=== PATIENT | female | born 1955 | race Caucasian/White ===

== ENCOUNTER 2017-03-07 10:57 | Observation (INO) | payer OTHER ==
[~2017-03-07] VITALS: Ht 172.7 cm; Wt 117.9 kg
[2017-03-07 11:35] LABS: HEMOGLOBIN 15.8 gm/dl (12.3-15.3); RED BLOOD COUNT 5.2 M/UL (4.00-5.10); WHITE BLOOD COUNT 10.6 K/UL (4.5-11.0)
[2017-03-07 11:43] LABS: BUN/CREATININE RATIO 16 (0-10)
[2017-03-07] MEDS ORDERED: PLAVIX 75 MG TA75 MG PO (19:06)
[2017-03-07] MEDS ORDERED: LOPRESSOR100 MG PO (19:07)
[2017-03-07] MEDS ORDERED: QUINAPRIL HCL5 MG PO (19:07)
[2017-03-07] MEDS ORDERED: LASIX40 MG PO (19:07)
[2017-03-07] MEDS ORDERED: ATORVASTATIN CA10 MG PO (19:08)
[2017-03-07] MEDS ORDERED: GLUCOPHAGE500 MG PO (19:09)
[2017-03-07] MEDS ORDERED: BUPROPION HCL150 M1 PO (19:09)
[2017-03-07] MEDS ORDERED: MELOXICAM7.5 MG PO (19:10)
[2017-03-07] MEDS ORDERED: IRON18 MG PO (19:13)
[2017-03-07] MEDS ORDERED: POTASSIUM CHLO10 ME1 PO (19:14)
[2017-03-08 06:34] LABS: HEMOGLOBIN 14.4 gm/dl (12.3-15.3); RED BLOOD COUNT 4.83 M/UL (4.00-5.10); WHITE BLOOD COUNT 9.8 K/UL (4.5-11.0)
[2017-03-08 06:56] LABS: BUN/CREATININE RATIO 19 (0-10)
[2017-03-08] MEDS ORDERED: ST. JOSEPH ASPI81 MG PO (17:46)
[2017-03-08] MEDS ORDERED: LISINOPRIL10 MG PO (17:47)
== END 2017-03-08 18:01 | disposition home or self-care (01) ==
LOC: ER1 10:57 → ZEROF 13:30 → MED SURG 4 18:30
PROVIDERS: Specialist/Technologist Athletic Trainer; ADMIT Family Medicine
DX: R07.9 Chest pain, unspecified (principal); I10 Essential (primary) hypertension; E78.5 Hyperlipidemia, unspecified; E11.9 Type 2 diabetes mellitus without complications; I25.10 Atherosclerotic heart disease of native coronary artery without angina pectoris; J44.9 Chronic obstructive pulmonary disease, unspecified; G47.33 Obstructive sleep apnea (adult) (pediatric); D50.9 Iron deficiency anemia, unspecified; Z85.038 Personal history of other malignant neoplasm of large intestine; Z95.5 Presence of coronary angioplasty implant and graft; Z90.49 Acquired absence of other specified parts of digestive tract; Z87.891 Personal history of nicotine dependence; Z79.02 Long term (current) use of antithrombotics/antiplatelets; Z79.899 Other long term (current) drug therapy
CPT/HCPCS: ECHO; 36415; 71010; 78452; 80048; 80053; 80061; 82550; 82553; 82962; 83874; 84439; 84443; 84484; 85025; 86403; 93005; 93017; 93306; 93971; 99285; A9502; G0378; J1650; J2785